=== PATIENT | female | born 1990 | race Caucasian/White ===

== ENCOUNTER 2021-04-23 16:04 | Emergency (ER) | payer MEDICAID ==
[~2021-04-23] VITALS: Ht 170.2 cm; Wt 56.7 kg
[2021-04-23 16:15] VITALS: BP 112/65
--- NOTE | 2021-04-23 16:20 | NUR ---
BIBS FOR C/O LEFT LOWER BACK PAIN RADIATING TO LEFT THIGH AGGRAVATED BY SITTING OR LAYING DOWN. RATES PAIN 5/10. WILL CONTINUE TO MONITOR THE PATIENT.
--- NOTE | 2021-04-23 16:23 | NUR ---
URINE COLLECTED AND SENT TO THE LAB
[2021-04-23] MEDS ORDERED: KETOROLAC TROMETHAMINE INJ 30 MG/ML VIAL IV ONE (16:30)
[2021-04-23 16:39] LABS: BILIRUBIN,URINE SMALL (NEGATIVE); COLOR,URINE DARK YELLOW (YELLOW); LEUKOCYTE ESTERASE ,URINE Negative (NEGATIVE); NITRITE, URINE Negative (NEGATIVE); PROTEIN,URINE 30 mg/dl (NEGATIVE); UGLUCOSE Negative (NEGATIVE)
[2021-04-23 16:53] LABS: BACTERIA,URINE Many /HPF (None Seen); SQUAMOUS EPITHELIAL CELL,UR Many /HPF (None Seen); YEAST,URINE Few /HPF (None Seen)
[2021-04-23 16:54] LABS: MUCUS,URINE Many /LPF (None Seen); WBC,URINE 0-2 /HPF (0-3)
[2021-04-23] MEDS ORDERED: KETOROLAC TROMETHAMINE 15 MG/ML VIAL ONE (17:01)
--- NOTE | 2021-04-23 17:05 | NUR ---
NAD, reclining in [facility] awaiting results and dispo
[2021-04-23] MEDS ORDERED: IBUP-1957 PO (17:37)
[2021-04-23] MEDS ORDERED: METH-647 GT (17:37)
--- NOTE | 2021-04-23 17:43 | NUR ---
States "medication worked- pain better" Patient discharged to home in stable condition. Written and verbal after care instructions given. Patient verbalizes understanding of instruction.
== END 2021-04-23 17:44 | disposition home or self-care (01) ==
LOC: ER 16:09
DX: M54.42 Lumbago with sciatica, left side (principal); F17.200 Nicotine dependence, unspecified, uncomplicated; Z91.018 Allergy to other foods; Z91.012 Allergy to eggs
CPT/HCPCS: 72110; 81001; 84703; 87086; 96374; 99284; J1885